=== PATIENT | male | born 1935 | race Caucasian/White ===

== ENCOUNTER 2017-12-12 13:41 | Emergency (ER) ==
[2017-12-12 13:50] VITALS: BP 147/83; TEMP 97.3; BMI 36.4
--- NOTE | 2017-12-12 14:03 | ED.PDOC ---
General ED Provider: Dr. AUGUSTUS CAMPBELL Chief Complaint: Non-specific Complaint Stated Complaint: leg weakness Time Seen by Physician: 14:00 (seen with nursing staff difficluty climbing stair walking) Mode of Arrival: Wheelchair Information Source: Patient Exam Limitations: No limitations Primary Care Provider: [place] ZALDIVAR Referred to ED by: Other Nursing and Triage Documentation Reviewed and Agree: Yes Reviewed sepsis parameters & appropriate labs ordered?: Yes System Inflammatory Response Syndrome: Not Applicable Sepsis Protocol: For patient's 13 years and over: Temp is 96.8 and below OR 101 and greater Pulse >90 BPM Resp >20/minute Acutely Altered Mental Status Are patient's symptoms suggestive of a new infection, such as: -Pneumonia -Skin, Soft Tissue -Endocarditis -UTI -Bone, Joint Infection -Implantable Device -Acute Abdominal Infection -Wound Infection -Meningitis -Blood Stream Catheter Infection -Unknown System Inflammatory Response Syndrome: Not Applicable Neurological Complaint Exam - Weakness Complaint/Exam Last Known Well: 3 months progressive leg weakness flu vaccine middle of oct Duration: about 3 months Symptoms Are: Still present (condition is getting worse) Timing: Constant (frquent falls) Episodes Lasting: Weeks Initial Severity: Mild Current Severity: Mild Character: Reports: Lightheaded, Weak Aggravating: Reports: None Alleviating: Reports: None Associated Signs and Symptoms: Denies: Nausea, Vomiting, Diaphoresis, Tinnitus, Chest pain, Short of air, Palpitations, Unsteady gait, GI blood loss, Visual changes, Decreased oral intake, Change in medication, Change in diet, OTC meds, Loss of balance Related History: Similar episode Cardiac Risk Factors: Reports: Hypertension, Diabetes, Elevated lipids, CAD CVA Risk Factors: Reports: Diabetes, Hypertension, CAD Related Surgical History: Reports: CABG JVD Present: No Carotid Bruit Present: No Glascow Coma Scale (see protocol): 15 Nystagmus Present: Yes Gag Reflex Present: No Meningeal Signs Positive: No Focal Weakness: Present: None Focal Sensory Loss: Present: None Gait: Normal Romberg Test Positive: No Babinski Sign: Negative Right, Negative Left Heel to Toe Normal: No Differential Diagnoses: CAD, Dysrhythmia, Hypovolemia, Medication reaction, Metabolic abnormalities Quality Indicators for Cardiac Chest Pain: EKG in 10min. Quality Indicators for AMI: EKG in 10min. Review of Systems - Review Of Systems Constitutional: Reports: Malaise, Weakness Eyes: Reports: No symptoms Ears, Nose, Mouth, Throat: Reports: No symptoms Respiratory: Reports: No symptoms Cardiac: Reports: No symptoms GI: Reports: No symptoms : Reports: No symptoms Musculoskeletal: Reports: No symptoms Skin: Reports: No symptoms Neurological: Reports: No symptoms Endocrine: Reports: No symptoms Hematologic/Lymphatic: Reports: No symptoms All Other Systems: Reviewed and Negative Past Medical History - Past Medical History Previously Healthy: No Endocrine: Reports: DM 2 Cardiovascular: Reports: CAD, CA, Hypertension, CHF, A-Fib Respiratory: Reports: None Hematological: Reports: None Gastrointestinal: Reports: None Genitourinary: Reports: None Neuro/Psych: Reports: CVA Musculoskeletal: Reports: None Cancer: Reports: None Other Pertinent Past Medical History: htn dm cva mi chf afib cad - Surgical History General Surgical History: Reports: Cholecystectomy, CABG (CABG X4 2002), Other ( Surgery in [place] last sunday to "ream out prostate") - Family History Family History: Reports: Unknown - Social History Smoking Status: Never smoker Hx Substance Use: No Alcohol Screening: None Physical Exam - Physical Exam Appearance: Well-appearing, No pain distress, Well-nourished Eyes: TERESA, EOMI, Conjunctiva clear ENT: Ears normal, Nose normal, Oropharynx normal Respiratory: Airway patent, Breath sounds clear, Breath sounds equal, Respirations nonlabored Cardiovascular: RRR, Pulses normal, No rub, No murmur GI/: Soft, Nontender, No masses, Bowel sounds normal, No Organomegaly Musculoskeletal: Normal strength, ROM intact, No edema, No calf tenderness Skin: Warm, Dry, Normal color Neurological: Sensation intact, Alert, Oriented (legs weak 4/5 power ) Psychiatric: Affect appropriate, Mood appropriate Physician Notification - Case Discussed Physician Notified: pmd Time of Notification: 14:54 (transfer ) Physician Notified: brenda Time of Notification: 15:14 Admit To: Inpatient Critical Care Note - Critical Care Note Total Time (mins): 0 Course - Course Hematology/Chemistry: 12/12/17 14:25 12/12/17 14:25 Orders, Labs, Meds: Lab Review 12/12/17 12/12/17 14:25 14:25 WBC 8.89 RBC 4.09 L Hgb 12.4 L Hct 37.3 L MCV 91.2 MCH 30.3 MCHC 33.2 RDW Coeff of Phyllis 15.7 H Plt Count 168 Immature Gran % (Auto) 0.3 Neut % (Auto) 65.8 Lymph % (Auto) 21.7 [place] % (Auto) 7.9 Eos % (Auto) 3.6 Baso % (Auto) 0.7 Immature Gran # (Auto) 0.0 Neut # 5.9 Lymph # 1.9 [place] # 0.7 Eos # 0.3 Baso # 0.1 Sodium 139 Potassium 4.2 Chloride 105 Carbon Dioxide 24 Anion Gap 14.2 BUN 38 H Creatinine 1.49 H Estimated GFR (MDRD) 45.00 BUN/Creatinine Ratio 25.50 Glucose 144 H Calcium 8.9 Total Bilirubin 0.6 AST 43 H ALT 44 Alkaline Phosphatase 89 Total Creatine Kinase 58 Troponin I < 0.0100 Total Protein 6.4 Albumin 3.2 L Globulin 3.2 Albumin/Globulin Ratio 1.00 Orders Category Date Time Status EKG-(ED ONLY) Stat CARDIO 12/12/17 13:59 Completed TRANSFER TO OUTSIDE FACILITY .TO [facility] 12/12/17 15:00 Active ([place], [place]) WRITE TRANSFER/SBAR NOTE ONCE CARE 12/12/17 15:00 Active DISCHARGE ASSESSMENT ONCE DISCHARGE 12/12/17 15:00 Active WRITE DISCHARGE NOTE ONCE DISCHARGE 12/12/17 15:00 Active ED IV/MEDIPORT/POWERPORT .ONCE EMERGENCY 12/12/17 14:53 Active CBC W/ AUTO DIFF Stat LAB 12/12/17 14:25 Completed COMPREHENSIVE METABOLIC PANEL Stat LAB 12/12/17 14:25 Completed CREATINE KINASE Stat LAB 12/12/17 14:25 Completed TROPONIN I Stat LAB 12/12/17 14:25 Completed URINALYSIS C & S IF INDICATED Stat LAB 12/12/17 13:58 Uncollected 0.9 % Sodium Chloride [Saline Flush] MEDS 12/12/17 14:53 Active 1 syr IVF PRN PRN Methylprednisolone Sod Succ/Pf [Solu-Medrol 125 mg] MEDS 12/12/17 14:53 Discontinued 250 [address] IVP ONCE STA CT CHEST W/O CONTRAST Stat RADS 12/12/17 13:[address] HEAD W/O CONTRAST Stat RADS 12/12/17 14:07 Completed Medications Generic Name Dose Route Start Last Admin Trade Name Freq PRN Reason Stop Dose Admin Sodium Chloride 1 syr 12/12/17 14:53 Saline Flush IVF PRN PRN To flush IV Discontinued Medications Generic Name Dose Route Start Last Admin Trade Name Shahla PRN Reason Stop Dose Admin Methylprednisolone Sodium Succinate 250 mg 12/12/17 14:53 Solu-Medrol 125 Mg IVP 12/12/17 14:54 ONCE STA Vital Signs: Temp Pulse Resp BP Pulse Ox 12/12/17 13:46 97.3 F L 76 20 147/83 H 97 Departure - Departure Time of Disposition: 15:00 Disposition: TSF SHORT-TRM HOSP Discharge Problem: Leg weakness, bilateral Instructions: Ischemic Stroke (GEN) Condition: Good Pt referred to PMD for follow-up: Yes IPMP verified?: Yes Allergies/Adverse Reactions: Allergies No Known Allergies Allergy (Verified 08/23/15 13:11) Home Medications: Ambulatory Orders Cholecalciferol (Vitamin D3) [Vitamin D] 4,000 unit PO WEEKLY 07/21/13 Furosemide [Lasix Tab] 40 mg PO DAILY 07/21/13 Glyburide [Diabeta] 10 mg PO BID 07/21/13 Multivitamin [Multi Vitamin Daily] 1 tab PO DAILY 07/21/13 Mcdonald-3 Fatty Acids [Fish Oil] 300 mg PO DAILY 07/21/13 Omeprazole [Prilosec] 20 mg PO DAILY 07/21/13 Oxcarbazepine [Trileptal] 300 mg PO DAILY 07/21/13 Propafenone HCl [Rythmol] 150 mg PO Q8HR 07/21/13 Simvastatin 80 mg PO BEDTIME 07/21/13 Warfarin Sodium [Coumadin] 2.5 mg PO BEDTIME 07/21/13 Allopurinol 300 mg PO DAILY 12/12/17 Aspirin [Aspirin EC] 81 mg PO DAILY 12/12/17 Cabergoline 0.5 mg PO DIRECTED 12/12/17 Gabapentin 100 mg PO BEDTIME 12/12/17 Tamsulosin HCl [Flomax] 0.4 mg PO DAILY 12/12/17
--- NOTE | 2017-12-12 14:30 | CT ---
EXAM: CT BRAIN HISTORY: Stroke, bilateral leg weakness TECHNIQUE: CT brain without intravenous contrast. 5-mm axial sections with Reformations. COMPARISON: None FINDINGS: There is generalized atrophy. There is moderately severe periventricular and deep white matter low at tenuation which although nonspecific is suggestive of chronic microvascular ischemic change. There i s a large region of encephalomalacia affecting the left occipital lobe consistent with old infarction . There is an ill-defined 1.4 cm region of low attenuation in the posterior right frontal lobe periv entricular space which is likely asymmetric extension from the aforementioned chronic microvascular i schemic disease. Less likely a small subacute infarction at this level. There is no mass effect juan ntified. No intracranial hemorrhage, midline shift or subdural hematoma. Mastoid processes are aera lala. Visualized paranasal sinuses reveal complete opacification of the right sphenoid cell. No skul l fracture. IMPRESSION: 1. No definite acute intracranial process. MRI is more sensitive regarding acute ischemia and infarc tion if indicated clinically. 2. Chronic sphenoid sinusitis.
--- NOTE | 2017-12-12 14:40 | CT ---
Exam: CT of the chest without intravenous contrast. Comparison: CT thorax performed 04/01/2010. Chest x-ray performed 08/23/2015. Reason for exam: Cough. FINDINGS: Image interpretation is limited by the lack of intravenous contrast administration. The heart is prominent in size. There is atherosclerotic disease within the aorta and distal arteria l vasculature including the coronary vessels. The aorta is prominent measuring 4 cm level of the arch. Operative changes are seen after midline st ernotomy. No pneumothorax. There are patchy atelectatic and nodular air space opacities in the left lower lobe. The gallbladder has been removed. No pneumothorax. Degenerative changes are seen in the left shoulder and thoracic spine. Similar appearing perinephric inflammatory changes are seen surrounding both kidneys. Impression: 1. Similar appearing loculated effusions/nodular atelectasis in the left lower lobe. Image interpret ation is limited by the lack of intravenous contrast administration. 2. Persistent cardiomegaly. 3. Prominence of the aorta measuring 4 cm at the level of the arch
[2017-12-12] MEDS ORDERED: SOLU-MEDROL 125 MG IVP STA ×2 (14:53→15:15)
--- NOTE | 2017-12-12 15:56 | CT ---
EXAM: CT of the lumbar spine without contrast History: Lower extremity weakness. Technique: Multiplanar CT images through the lumbar spine were obtained without the administration o f IV contrast Findings: Atherosclerotic vascular calcifications. Visualized bladder is distended. Degenerative c hanges of the bilateral sacroiliac joints with bridging osteophytes. No acute fracture or subluxation of the lumbar spine. Osteopenia. Mild to moderate multilevel degen erative disc space narrowing with endplate sclerosis and osteophyte formation. T12-L1: No significant disc bulge, central canal stenosis or neural foraminal narrowing. L1-L2: Posterior disc osteophyte complex with mild central canal stenosis and mild to moderate bilat eral bony neural foraminal narrowing secondary to ligamentous and facet hypertrophy. L2-L3: Posterior disc osteophyte complex with mild to moderate central canal stenosis. Moderate lef t and mild to moderate right bony neural foraminal narrowing secondary to ligamentous and facet hyper trophy. L3-L4: Posterior disc osteophyte complex. There is moderate to severe central canal stenosis. Mode rate to severe left and moderate right bony neural foraminal narrowing secondary to ligamentous and f acet hypertrophy. L4-L5: No significant central canal stenosis. Moderate to severe bilateral bony neural foraminal na rrowing secondary to ligamentous and facet hypertrophy. L5-S1: No significant central canal stenosis. Moderate to severe bilateral bony neural foraminal na rrowing secondary to ligamentous and facet hypertrophy. Impression: 1. No acute osseous abnormality of the lumbar spine. 2. Degenerative changes with level by level analysis as detailed above with moderate to severe spina l stenosis at L3-L4 and moderate to severe bilateral bony neural foraminal narrowing in the lower lum bar spine.
== END 2017-12-12 16:00 | disposition short-term general hospital (02) ==
LOC: ED 13:41
DX: R53.1 Weakness (principal); R29.6 Repeated falls; R42 Dizziness and giddiness; E11.9 Type 2 diabetes mellitus without complications; I10 Essential (primary) hypertension; E78.5 Hyperlipidemia, unspecified; I25.810 Atherosclerosis of coronary artery bypass graft(s) without angina pectoris; I25.2 Old myocardial infarction; I50.9 Heart failure, unspecified; Z86.73 Personal history of transient ischemic attack (TIA), and cerebral infarction without residual deficits; Z79.01 Long term (current) use of anticoagulants; Z79.899 Other long term (current) drug therapy
CPT/HCPCS: 36415; 80053; 82550; 84484; 85025; 93005; 93010; 96375; 99285